=== PATIENT | female | born 1980 | race Caucasian/White ===

== ENCOUNTER 2023-12-27 21:06 | Outpatient (REF) | payer OTHER, SELFPAY ==
[2024-01-02 11:09] LABS: Age Gdln ACOG Testing Note (.); HPV Aptima Negative (Negative); IGP, Aptima HPV, rfx 16/18,45 Note (.)
== END 2023-12-27 21:07 | disposition home or self-care (01) ==
LOC: LAB 21:06
PROVIDERS: PCP Obstetrics & Gynecology; Visit Provider Obstetrics & Gynecology
DX: Z01.419 Encounter for gynecological examination (general) (routine) without abnormal findings (principal)
CPT/HCPCS: 87624; G0145

== ENCOUNTER 2024-01-12 13:42 | Outpatient (OUT) | payer OTHER, SELFPAY ==
--- NOTE | 2024-01-12 13:44 | MM_ITS ---
Patient Name: SHARON CARTER MR#: [id number] : 1980 Exam Date: 01/12/2024 Ordering Doctor: DR Jose Antonio Alaniz . RADIOLOGY REPORT PROCEDURE: MM TOMOSYNTHESIS SCREENING BI COMPARISON: None. INDICATIONS: Screening Calculator Name NCI Breast Cancer Risk Assessment Tool 5 Year Breast Cancer Risk 1.70% Lifetime Breast Cancer Risk 17.30% Personal Breast Cancer No Personal Ovarian Cancer No Treatments None Family Cancers None LOCATION: [facility] BREAST COMPOSITION: Extremely dense, which lowers the sensitivity of mammography. FINDINGS: DIAGNOSTIC CATEGORY 1--NEGATIVE. RIGHT BREAST: No significant suspicious finding. LEFT BREAST: No significant suspicious finding. RECOMMENDATIONS: ROUTINE MAMMOGRAM AND CLINICAL EVALUATION IN 12 MONTHS. PLEASE NOTE: A NORMAL MAMMOGRAM DOES NOT EXCLUDE THE POSSIBILITY OF BREAST CANCER. A CLINICALLY SUSPICIOUS PALPABLE LUMP SHOULD BE BIOPSIED. Dictated by: Kale Tejada M.D. on 01/12/2024 at 15:08 Approved by: Kale Tejada M.D. on 01/12/2024 at 15:09
--- OUTSIDE RECORDS SUMMARY | 2024-01-12 14:02 | XMS_ITS | CCD ---
Author Name Unknown Address [address] [place] [address] Organization [facility] Care Team Providers Care Triage Technician Name Role Phone Unavailable Primary Care Provider Rajinder AVILA, DR KIRSTIN Dumont Primary Care Unavailable RUBEN ., DR JOSEPH Admitting Unavailable RUBEN ., DR JOSEPH Consulting Unavailable RUBEN ., DR JOSEPH Attending Unavailable AUSTIN, DR KIRSTIN Dumont Primary Care Unavailable KARINA, LENIN Admitting Unavailable KARINA, LENIN Attending Unavailable ADI, DR JAYSON Orozco Consulting Unavailable KARINA, LENIN Consulting Unavailable AUSTIN, DR KIRSTIN Dumont Primary Care Unavailable RUBEN ., DR JOSEPH Admitting Unavailable RUBEN ., DR JOSEPH Consulting Unavailable RUBEN ., DR JOSEPH Attending Unavailable AUSTIN, DR KIRSTIN Dumont Primary Care Unavailable DES ., ANDREW DURHAM Admitting Unavailable DES ., ANDREW DURHAM Attending Unavailable RUBEN, JAKE Attending Unavailable Allergies Allergy Classification Reported Allergen(s) Allergy Type Date of Onset Reaction(s) Facility (1 source) Codeine Drug Allergy 11-06-[address] [facility] Repository Problems Active Problems Problem Classification Problem Date Documented Da te Episodic/Chronic Other endocrine disorders (4 sources) Endocrine disorder, unspecified; Translations: [ENDOCRINE DISORDER UNSPECIFIED] Onset: 03-31-2023 Episodic Other non-traumatic joint disorders (4 sources) Pain in right ankle and joints of right foot; Translations: [PAIN IN RIGHT ANKLE] Onset: 02-23-2023 Episodic Other non-traumatic joint disorders (1 source) Pain in left ankle and joints of left foot; Translations: [PAIN IN LEFT ANKLE] Onset: 03-02-2023 Episodic Past or Other Problems Problem Classification Problem Date Documented Da te Episodic/Chronic Other screening for suspected conditions (not mental disorders or infectious disease) (4 sources) Encounter for screening for malignant neoplasm of cervix; Translations: [ENC SCREENING MALIG NEOPLASM CERV] Onset: 12-19-2022 Episodic Results Test Name Value Interpretation Reference Range Loco brody DHEA-SULFATEon 04-01-2023 DHEA-Sulfate 108.0 ug/dL Normal 57.3-279.2 The [facility] Comment on above: Performed By: #### D HEJOSEF #### [facility] [address] [address] [address] Sissy Adam FSHon 04-01-2023 FSH 8.2 mIU/mL Normal [facility] Comment on above: Result Comment: Adul t Female: Follicular phase 3.5 - 12.5 Ovulation phase 4.7 - 21.5 Luteal phase 1.7 - 7.7 Postmenopausal 25.8 - 134.8 Performed By: #### L BCFSH #### [facility] [address] [place] [address] Dr. Sissy Adam LUTEINIZING HORMONE (LH)on 0 04-01-2023 LH 8.7 mIU/mL Normal [facility] Comment on above: Result Comment: Adul t Female: Follicular phase 2.4 - 12.6 Ovulation phase 14.0 - 95.6 Luteal phase 1.0 - 11.4 Postmenopausal 7.7 - 58.5 Performed By: #### L BCLH #### [facility] [address] [address] [address] Sissy Adam PROLACTINon 04-01-2023 Prolactin 45.8 ng/mL Critically high 4.8-23.3 The [facility] Comment on above: Performed By: #### P ROLAC #### [facility] [address] [address] [address] Sissy Adam TSHon 03-31-2023 TSH 3.339 uIU/mL Normal 0.358-3.740 The [facility] Comment on above: Performed By: #### T SH #### [facility] [address] [place] [address] Dr. Sissy Adam XR FOOT MARCO MIN 3 VIEWSon XR FOOT MARCO MIN 3 VIEWS EXAMINATION: XR ANKLE MARCO MIN 3 VIEWS, XR FOOT MARCO MIN 3 VIEWS HISTORY: Bilateral ankle joint pain ; lateral right ankle pain and swelling since injury 7 months ago COMPARISON: No relevant comparison available. FINDINGS: RIGHT FINDINGS: BONES: No significant arthropathy or acute abnormality. SOFT TISSUES: No visible soft tissue swelling. OTHER: Negative. LEFT FINDINGS: BONES: No significant arthropathy or acute abnormality. SOFT TISSUES: No visible soft tissue swelling. OTHER: Negative. IMPRESSION: RIGHT CONCLUSION: No acute bone abnormality, suspicious findings, or significant degenerative changes. LEFT CONCLUSION: No acute bone abnormality, suspicious findings, or significant degenerative changes. Electronically authenticated by: JAYSON JOSHI Date: 2023-02-23 12:04 Normal [facility] PAP ACOG PANEL 2: 30 to 65on 12-26-2022 . . Normal [facility] Comment on above: Result Comment: Perf ormed at: WB Performed By: #### [id number] #### [facility] [address] [place] [address] Dr. Sissy Adam Age Gdln ACOG Testing 30-65 Normal [facility] Comment on above: Performed By: #### [id number] #### [facility] [address] [address] [address] Sissy Adam DIAGNOSIS: Comment Normal [facility] Comment on above: Result Comment: NEGA TIVE FOR INTRAEPITHELIAL LESION OR MALIGNANCY. THIS SPECIMEN WAS RESCREENED PART OF OUR STEAMFITTER SUPERVISOR PROGRAM. Performed at: WB Performed By: #### [id number] #### [facility] [address] [place] [address] Dr. Sissy Adam HPV Aptima Negative Normal Negative [facility] Comment on above: Result Comment: This nucleic acid amplification test detects fourteen high-risk HPV types (16,18,31,33,35,39,45,51,52,56,58,59,66,68) without differentiation. Performed at: =G Performed By: #### [id number] #### [facility] [address] [address] [address] Sissy Adam HPV Genotype Reflex Comment Normal [facility] Comment on above: Result Comment: Crit eria not met, HPV Genotype not performed. Performed at: WB Performed By: #### [id number] #### [facility] [address] [place] [address] Dr. Sissy Adam Methodology: Comment Normal [facility] Comment on above: Result Comment: This liquid based ThinPrep(R) pap test was screened with the use of an image guided system. Performed at: WB Performed By: #### [id number] #### [facility] [address] [address] [address] Sissy Adam Note: Comment Normal [facility] Comment on above: Result Comment: The Pap smear is a screening test designed to aid in the detection of premalignant and malignant conditions of the uterine cervix. It is not a diagnostic procedure and should not be used as the sole means of detecting cervical cancer. Both false-positive and false-negative reports do occur. . Performed at: WB Performed By: #### [id number] #### [facility] [address] [place] [address] Dr. Sissy dAam Performed by: Comment Normal [facility] Comment on above: Result Comment: Tamara Flores, Creamery Worker (ASCP) Performed at: [facility] Performed By: #### [id number] #### [facility] [address] [address] [address] Sissy Adam QC reviewed by: Comment Normal [facility] Comment on above: Result Comment: Anna Harris, Supervisory Creamery Worker (ASCP) Performed at: WB Performed By: #### [id number] #### [facility] [address] [place] [address] Dr. Sissy Adam Specimen adequacy: Comment Normal [facility] Comment on above: Result Comment: Sati sfactory for evaluation. Endocervical and/or squamous metaplastic cells (endocervical component) are present. Performed at: WB Performed By: #### [id number] #### [facility] [address] [address] [address] Sissy Adam Encounters Encounter Date Encounter Type Care Provider Facility Start: 12-27-2023 End: 12-27-2023 ambulatory JAKE MIRANDA Not Available Start: 03-31-2023 End: 04-01-[address] KIRSTIN AVILA Facility: Start: 04-27-[address] KIRSTIN AVILA Facil ity:H1 Start: 02-26-2023 End: 02-27-2023 Emergency department patient visit [facility] Start: 02-23-2023 End: 02-24-[address] KIRSTIN AVILA Facility:H1 Start: 12-19-2022 End: 12-19-[address] KIRSTIN AVILA Facility:H1 Plan of Treatment Date Care Activity Detail Author Start: 06-06-2023 Influenza vaccination Flu vacc ine (Season Ended) [facility] [employer] Start: 1999 DTaP/Tdap/Td vaccine (1 - Tdap) DTaP/Tdap/Td vaccine (1 - Tdap) [employer] Start: 04-09-1981 COVID-19 Vaccine (#1) COVID-19 Vacci ne (#1) [employer] Payers Date Payer Category Payer Private Health Insurance [id number] 1980 Unknown [id number] 2.16.84 [id number] 1980 Unknown [id number] 2.16.84 [id number] 1980 Unknown [id number] 2.16.84 [id number] 1980 Unknown [id number] 2.16.84 [id number] 1980 Unknown [id number] 2.16.84 [id number] 1959 Self-pay [id number] Social History Date Type Detail Facility [facility] [employer] Phone: Start: 1980 Sex Assigned At Not on file B ON [employer] Phone: Summary Purpose Family History No Family History Records FoundNo Family History Records Found Advance Directives No Advanced Directives Records FoundNo Advanced Directives Records Found Additional Source Comments INFORMATION SOURCE (unrecogn ized section and content) DATE CREATED AUTHOR 04/14/2023 [facility] DATE CREATED AUTHOR AUTHOR'S BLANCA HUNTER 01/04/2024 [facility] EPIC FOR RECORDS PERTAINING TO PATIENTS WHO ARE OR HAVE BEEN ENROLLED IN A CHEMICAL DEPENDENCY/SUBSTANCEABUSE PROGRAM, SOME INFORMATION MAY BE OMITTED. This clinical summary was aggregated from multiple sources. Caution should be exercised in using it in the provision of clinical care. This summary normalizes information from multiple sources, and as a consequence, information in this document may materially change the coding, format and clinical context of patient data. In addition, data may be omitted in some cases. CLINICAL DECISIONS SHOULD BE BASED ON THE PRIMARY CLINICAL RECORDS. [facility] [employer] provides no warranty or guarantee of the accuracy or completeness of information in this document.
== END 2024-01-12 13:43 | disposition home or self-care (01) ==
LOC: MAMMO 13:42
PROVIDERS: PCP Obstetrics & Gynecology; Visit Provider Obstetrics & Gynecology
DX: Z12.31 Encounter for screening mammogram for malignant neoplasm of breast (principal)
CPT/HCPCS: 77063; 77067

== ENCOUNTER 2025-01-01 14:13 | Outpatient (REF) | payer OTHER, SELFPAY ==
--- OUTSIDE RECORDS SUMMARY | 2025-01-01 14:30 | XMS_ITS | CCD ---
Author Organization [facility] Care Team Providers Care Strip Roller Name Role Phone Unavailable Primary Care Provider [...] Unavailable DES ., ANDREW DURHAM Attending Unavailable JAKE MIRANDA Attending Unavailable Allergies Allergy Classification Reported Allergen(s) Allergy Type Date of Onset Reaction(s) Facility (1 source) Codeine Drug Allergy 11-06-2001 The [facility] Repository Problems Active Problems Problem Classification Problem [...] 04-01-2023 DHEA-Sulfate 108.0 ug/dL Normal 57.3-279.2 The [facility] Comment on above: Performed By: #### D HEDEDRICKUL #### [facility] [address] [place] [address] Dr. Sissy Adam FSHon 04-01-2023 FSH 8.2 mIU/mL Normal [facility] Comment on above: Result Comment: Adul t Female: Follicular phase 3.5 - 12.5 Ovulation phase 4.7 - 21.5 Luteal phase 1.7 - 7.7 Postmenopausal 25.8 - 134.8 Performed By: #### L BCFSH #### [facility] [address] [place] [address] Dr. Sissy Adam LUTEINIZING HORMONE (LH)on 04-01-2023 LH 8.7 mIU/mL Normal [facility] Comment on above: Result Comment: Adul t Female: Follicular phase 2.4 - 12.6 Ovulation phase 14.0 - 95.6 Luteal phase 1.0 - 11.4 Postmenopausal 7.7 - 58.5 Performed By: #### L BCLH #### [facility] [address] [address] [address] Sissy Adam PROLACTINon 04-01-2023 Prolactin 45.8 ng/mL Critically high 4.8-23.3 The [facility] Comment on above: Performed By: #### P ROLAC #### [facility] [address] [place] [address] Dr. Sissy Adam TSHon 03-31-2023 TSH 3.339 uIU/mL Normal 0.358-3.740 [facility] Comment on above: Performed By: #### T SH #### [facility] [address] [place] [address] Dr. Sissy Adam XR FOOT MARCO MIN [...] by: JAYSON JOSHI Date: 2023-02-23 12:04 Normal [facility] PAP ACOG PANEL 2: 30 to 65on 12-26-2022 . . Normal [facility] Comment on above: Result Comment: Perf ormed at: WB Performed By: #### [id number] #### [facility] [address] [address] [address] Sissy Adam Age Gdln ACOG Testing 30-65 Normal [facility] Comment on above: Performed By: #### [id number] #### [facility] [address] [address] [address] Sissy Adam DIAGNOSIS: Comment Normal [facility] Comment on above: Result Comment: NEGA TIVE FOR INTRAEPITHELIAL LESION OR MALIGNANCY. THIS SPECIMEN WAS RESCREENED PART OF OUR SENIOR SOFTWARE ANALYST PROGRAM. Performed at: WB Performed By: #### [id number] #### [facility] [address] [address] [address] Sissy Adam HPV Aptima Negative Normal Negative [facility] Comment on above: Result Comment: This nucleic acid amplification test detects fourteen high-risk HPV types (16,18,31,33,35,39,45,51,52,56,58,59,66,68) without differentiation. Performed at: =G Performed By: #### [id number] #### [facility] [address] [address] [address] Sissy Adam HPV Genotype Reflex Comment Normal [facility] Comment on above: Result Comment: Crit eria not met, HPV Genotype not performed. Performed at: WB Performed By: #### [id number] #### [facility] [address] [address] [address] Sissy Adam Methodology: Comment Normal [facility] Comment on above: Result Comment: This liquid based ThinPrep(R) pap test was screened with the use of an image guided system. Performed at: WB Performed By: #### [id number] #### [facility] [address] [address] [address] Sissy Adam Note: Comment Normal [facility] Comment on above: Result Comment: The Pap smear is a screening test designed to aid in the detection of premalignant and malignant conditions of the uterine cervix. It is not a diagnostic procedure and should not be used as the sole means of detecting cervical cancer. Both false-positive and false-negative reports do occur. . Performed at: WB Performed By: #### [id number] #### [facility] [address] [address] [address] Sissy Adam Performed by: Comment Normal [facility] Comment on above: Result Comment: Tamara Flores, Secretary Receptionist (ASCP) Performed at: [facility] Performed By: #### [id number] #### [facility] [address] [address] [address] Sissy Adam QC reviewed by: Comment Normal [facility] Comment on above: Result Comment: Anna Harris, Supervisory Secretary Receptionist (ASCP) Performed at: WB Performed By: #### [id number] #### [facility] [address] [address] [address] Sissy Adam Specimen adequacy: Comment Normal [facility] Comment on above: Result Comment: Sati sfactory for evaluation. Endocervical and/or squamous metaplastic cells (endocervical component) are present. Performed at: WB Performed By: #### [id number] #### [facility] [address] [address] [address] Sissy Adam Encounters Encounter Date Encounter Type Care Provider Facility Start: 12-27-2023 End: 12-27-2023 ambulatory JAKE MIRANDA Not Available Start: 03-31-2023 End: 04-01-[address] KIRSTIN AVILA Facility:H1 Start: 03-02-[address] KIRSTIN AVILA Facil ity:H1 Start: 02-26-2023 End: 02-27-2023 Emergency department patient visit [facility] Start: 02-23-2023 End: 02-24-[address] KIRSTIN AVILA Facility:H1 Start: 12-19-2022 End: 12-19-[address] KIRSTIN AVILA Facility:H1 Plan of Treatment Date Care Activity Detail Author Start: 06-06-2023 Influenza vaccination Flu vacc ine (Season Ended) [facility] [employer] Start: 1999 DTaP/Tdap/Td vaccine (1 - Tdap) DTaP/Tdap/Td vaccine (1 - Tdap) [facility] [employer] Start: 04-09-1981 COVID-19 Vaccine (#1) COVID-19 Vacci ne (#1) [facility] [employer] Payers Date Payer Category Payer Private Health Insurance [id number] 1980 Unknown [id number] 2.16.84 [id number] 1980 Unknown [id number] 2.16.84 [id number] 1980 Unknown [id number] 2.16.84 [id number] 1980 Unknown [id number] 2.16.84 [id number] 1980 Unknown [id number] 2.16.84 [id number] 1959 Self-pay [id number] Social History Date Type Detail Facility Tobacco smoking stat [facility] Tobacco smoking consumption unknown [facility] [employer] Phone: Start: 1980 Sex Assigned At Not on file B ON [employer] Phone: Summary Purpose Family History No Family History Records FoundNo Family History Records Found Advance Directives No Advanced Directives Records FoundNo Advanced Directives Records Found Additional Source Comments INFORMATION SOURCE (unrecogn ized section and content) DATE CREATED AUTHOR 04/14/2023 [facility] DATE CREATED AUTHOR AUTHOR'S ORGANIZ ATION 01/04/2024 [facility] FOR RECORDS PERTAINING TO PATIENTS WHO ARE [...] BE BASED ON THE PRIMARY CLINICAL RECORDS. [facility] [employer] [facility]. provides no warranty or guarantee of the accuracy or completeness of information in this document.
[2025-01-04 10:08] LABS: Age Gdln ACOG Testing Note (.); HPV Aptima Negative (Negative); IGP, Aptima HPV, rfx 16/18,45 Note (.)
== END 2025-01-01 14:14 | disposition home or self-care (01) ==
LOC: LAB 14:13
PROVIDERS: PCP Obstetrics & Gynecology; Visit Provider Obstetrics & Gynecology
DX: Z01.419 Encounter for gynecological examination (general) (routine) without abnormal findings (principal)
CPT/HCPCS: 87624; 88175

== ENCOUNTER 2025-01-13 09:17 | Outpatient (OUT) | payer OTHER, SELFPAY ==
--- NOTE | 2025-01-13 09:20 | MM_ITS ---
Patient Name: SHARON CARTER MR#: [id number] : 1980 Exam Date: 01/13/2025 Ordering Doctor: DR Jose Antonio Alaniz . RADIOLOGY REPORT PROCEDURE: MM TOMOSYNTHESIS SCREENING BI COMPARISON: MM TOMOSYNTHESIS SCREENING BI, 01/12/2024. INDICATIONS: Screening Calculator Name NCI Breast Cancer Risk Assessment Tool 5 Year Breast Cancer Risk 1.80% Lifetime Breast Cancer Risk 17.10% Personal Breast Cancer No Personal Ovarian Cancer No Treatments None Family Cancers None LOCATION: [facility] BREAST COMPOSITION: The breasts are extremely dense, which lowers the sensitivity of mammography. FINDINGS: DIAGNOSTIC CATEGORY 1--NEGATIVE. RIGHT BREAST: No significant suspicious finding. LEFT BREAST: No significant suspicious finding. RECOMMENDATIONS: ROUTINE MAMMOGRAM AND CLINICAL EVALUATION IN 12 MONTHS. PLEASE NOTE: A NORMAL MAMMOGRAM DOES NOT EXCLUDE THE POSSIBILITY OF BREAST CANCER. A CLINICALLY SUSPICIOUS PALPABLE LUMP SHOULD BE BIOPSIED. Dictated by: Hawk Mo DO on 01/13/2025 at 15:38 Approved by: Hawk Mo DO on 01/13/2025 at 15:39
== END 2025-01-13 09:18 | disposition home or self-care (01) ==
LOC: MAMMO 09:17
PROVIDERS: PCP Obstetrics & Gynecology; Visit Provider Obstetrics & Gynecology
DX: Z12.31 Encounter for screening mammogram for malignant neoplasm of breast (principal)
CPT/HCPCS: 77063; 77067

== ENCOUNTER 2025-07-05 11:52 | Outpatient (OUT) | payer OTHER, SELFPAY ==
--- OUTSIDE RECORDS SUMMARY | 2025-07-05 12:00 | XMS_ITS | Encounter Summary ---
Author Organization [facility] Address [address] [place] [address] Care Team Providers Care Binman Name Role Phone Lucia Henley MD Primary Care Provider [phone] Encounter Details Date Type Department Care Team (Late Contact Info) Description 07/03/2025 Telephone [facility] [place] [facility] [address] [place] [address] Jose Antonio Alaniz DO [address] [place], [facility] Social History Tobacco Use Types Packs/Day Years Used Date Smoking Tobacco: Never Alcohol Use Standard Drinks/Week Comments Never 0 (1 standard drink = 0.6 oz pur e alcohol) Comments No Sex and Gender Information Value Date Recorded Sex Assigned at Not on file Legal Sex Female 6:44 PM EDT Gender Identity Not on file Sexual Orientation Not on file documented as of this encounter Miscellaneous Notes * Addendum Note - [place] Ann Natarajan LPN - 07/03/2025 1:09 PM EDTAddended by: [place] ANN NATARAJAN on: 07/03/2025 01:09 PM Modules accepted: Orders * Telephone Encounter - [place] Ann Natarajan LPN - 07/03/2025 12:46 PM EDT Hi, this is Morena Mock. My date of is 10-09 I see Hayley. Normally my annuals are usually around December. But I was curious if he could put in an order for hormone labs for me. I havebeen having some symptoms that, I think mirror Premenopause. I have not had a period in, like, 45 days. I know I am not . And so I am curious about that along with other some other symptoms too. And I just do not know where my hormone look levels are. So I figured if I could get them tested, he might be able to tell me where I am at on the menopause scale. So if you have any questions, just give me a Buzz, please. [phone], thanks. Patient was called and made aware labs would be ordered and these were sent to [facility] and she states that she has not had these done and she was advised looks like she hd labs in 2022 and these were normal except the prolactin level which stimulates milk production. PVU documented in this encounter Plan of Treatment Upcoming Encounters Date Type Department Care Team (Late st Contact Info) Description 01/12/2026 9:00 AM EDT Office Visit [facility] [place] [facility] [address] [place] [address] Jose Antonio Alaniz DO [address] [address] Scheduled Orders Name Type Priority Associated Diagnoses Orde r Schedule TSH Lab Routine Amenorrhea Expected: 07/03/2025 (Approximate), Expires: 07/03/2026 Follicle stimulating hormone Lab Routine Amenorrhea Expected: 07/03/2025 (Approximate), Expires: 07/03/2026 Prolactin Lab Routine Amenorrhea Expected: 07/03/2025 (Approximate), Expires: 07/03/2026 LH Lab Routine Amenorrhea Expected: 07/03/2025 (Approximate), Expires: 07/03/2026 DHEA-sulfate Lab Routine Amenorrhea Expected: 07/03/2025 (Approximate), Expires: 07/03/2026 Estradiol Lab Routine Hormone disorder Expected: 07/03/2025 (Approximate), Expires: 07/03/2026 Estrone Lab Routine Hormone disorder Expected: 07/03/2025 (Approximate), Expires: 07/03/2026 Cortisol, free Lab Routine Hormone disorder Expected: 07/03/2025 (Approximate), Expires: 07/03/2026 Sex hormone binding globulin Lab Routine Hormone disorder Expected: 07/03/2025 (Approximate), Expires: 07/03/2026 Insulin, total Lab Routine Hormone disorder Expected: 07/03/2025 (Approximate), Expires: 07/03/2026 Serotonin serum Lab Routine Hormone disorder Expected: 07/03/2025 (Approximate), Expires: 07/03/2026 T4, free Lab Routine Hormone disorder Expected: 07/03/2025 (Approximate), Expires: 07/03/2026 T3, reverse Lab Routine Hormone disorder Expected: 07/03/2025 (Approximate), Expires: 07/03/2026 Progesterone Lab Routine Hormone disorder Expected: 07/03/2025 (Approximate), Expires: 07/03/2026 Vitamin D 1,25 dihydroxy Lab Routine Hormone disorder Expected: 07/03/2025 (Approximate), Expires: 07/03/2026 Ferritin Lab Routine Hormone disorder Expected: 07/03/2025 (Approximate), Expires: 07/03/2026 T3, free Lab Routine Hormone disorder Expected: 07/03/2025 (Approximate), Expires: 07/03/2026 Thyroglobulin Lab Routine Hormone disorder Expected: 07/03/2025 (Approximate), Expires: 07/03/2026 Thyroglobulin Antibody Lab Routine Hormone disorder Expected: 07/03/2025 (Approximate), Expires: 07/03/2026 Thyroid peroxidase antibody Lab Routine Hormone disorder Expected: 07/03/2025 (Approximate), Expires: 07/03/2026 T4 Lab Routine Hormone disorder Expected: 07/03/2025 (Approximate), Expires: 07/03/2026 TESTOSTERONE, FREE Lab Routine Hormone disorder Expected: 07/03/2025 (Approximate), Expires: 07/03/2026 Testosterone, free, total Lab Routine Hormone disorder Expected: 07/03/2025 (Approximate), Expires: 07/03/2026 Hemoglobin A1c Lab Routine Hormone disorder Expected: 07/03/2025 (Approximate), Expires: 07/03/2026 Glucose, random Lab Routine Hormone disorder Expected: 07/03/2025 (Approximate), Expires: 07/03/2026 C-peptide Lab Routine Hormone disorder Expected: 07/03/2025 (Approximate), Expires: 07/03/2026 documented as of this encounter Visit Diagnoses Diagnosis Amenorrhea Absence of menstruation Hormone disorder Unspecified endocrine disorder documented in this encounter Care Teams Binman Relationship Specialty Start Date End Date Lucia Henley MD PCP - General Family Medicine 12/27/23 documented as of this encounter
--- OUTSIDE RECORDS SUMMARY | 2025-07-05 12:00 | XMS_ITS | Patient Health Record ---
Author Organization [facility] in [place] Address [address] [place] [address] Care Team Providers Care Laboratory Specialist Name Role Phone Lucia Henley Primary Care Provider Unavailabl e Allergies Allergen (clinical drug ingredient) Drug/Non Drug Allergy documented on EMR Reaction Allergy Type Onset Date Status codeine Codeine Unknown Drug Allergy Active Reason For Referral No Information Medications Medication SIG (Take, Route, Fr equency, Duration) Notes Start Date End Date Status Citalopram Hydrobromide Active Active Social History Tobacco Use: Social History Observation Description Date Details (start date - stop date) Never Smoker NA - NA Tobacco Use/Smoking Question Answer Notes Patient is a nonsmoker Problems Problem Type SNOMED Code ICD Code Onset Dates Problem Status W/U Status Risk Notes Problem Arthralgia of the ankle and/or foot (722482840) Pain in right ankle and joints of right foot (M25.571) Active confirmed Plan Of Treatment No Information Insurance Providers Payer Name Payer Address Payer Phone Subscriber Number Group Number Insured Name Patient Relationship to Insured Coverage Start Date Coverage End Date [facility] [address] [place], [place] [id number] Morena Mock Self - patient is the insured Medical (General) History Surgical History Surgery Date(Month/Year) lasik hernia repair 06/1989
--- OUTSIDE RECORDS SUMMARY | 2025-07-05 12:00 | XMS_ITS | Encounter Summary ---
Author Organization [facility] Address [facility] [id number] [address] [place] [address] Care Team Providers Care Ear Flap Binder Name Role Phone Lucia Henley MD Primary Care Provider [phone] Reason for Referral * Diagnostic Imaging (Routine) - Closed Specialty Diagnoses / Procedures Referred By Jenny harvey Referred To Contact Maternal and Medicine Diagnoses Rh negative state in antepartum period H/O delivery, currently H/O miscarriage, currently Multigravida of advanced maternal age in second trimester Procedures US MF with or without consult Phylicia Irvin MD Maternal- Medicine at [address] [address] Phone: tel: fax: Referral ID Status Reason Start Date Expiration Date Visits Re quested Visits Authorized [id number] Closed 04/06/2021 04/06/2022 1 1 Encounter Details Date Type Department Care Team (Late st Contact Info) Description 04/06/2021 Orders Only Maternal- Medicine at [address] [address] Phylicia Irvin MD Rh negative state in antepartum period (Primary Dx); H/O delivery, currently ; H/O miscarriage, currently ; Multigravida of advanced maternal age in second trimester Social History Tobacco Use Types Packs/Day Years Used Date Smoking Tobacco: Never Smokeless Tobacco: Never Alcohol Use Standard Drinks/Week Comments Not Currently 0 (1 standard drink = 0.6 oz pur e alcohol) Childcare Answer Date Recorded Childcare Unknown 04/11/2019 Employment Answer Date Recorded Employment Unknown 04/11/2019 Purpose - Life Answer Date Recorded Purpose and direction in life Unknown Comments Yes Sex and Gender Information Value Date Recorded Sex Assigned at Not on file Legal Sex Female 12:43 PM EDT Gender Identity Not on file Sexual Orientation Not on file COVID-19 Exposure Response Date Recorded In the last month, have you been in contact with someone who was confirmed or suspected to have Coronavirus / COVID-19? No / Unsure 04/06/2021 1:06 PM EDT documented as of this encounter Plan of Treatment Not on file documented as of this encounter Results * US MFM OB TRANSVAGINAL (05/04/2021 2:11 PM EDT) Anatomical Region Laterality Modality Pelvis Ultrasound 05/04/2021 2:07 PM EDT Impressions 05/04/2021 2:18 PM EDT IMPRESSION: 1. Single intrauterine . 2. Transvaginal Cervical Length = 3 cm. Narrative 05/04/2021 2:18 PM EDT OBSTETRICS REPORT (Signed Final 05/04/2021 14:18) PATIENT INFO: ID #: [id number] : [birth year] (40 yrs)(F) Name: MORENA CARTER Visit Date: 05/04/2021 14:07 PERFORMED BY: Performed By: Tram Riley RDMS Attending: Janes Fields MD Referred By: Jose Antonio Alaniz DO Ref. Address: [address] [place] [address] 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 By: LMP (11/26/20) AJAY: 09/02/21 CERVIX UTERUS ADNEXA: Cervix Length: 3 cm. Appears closed, without funnelling Uterus Gravid uterus Cul De Sac No fluid seen COMMENTS: 1. A trans vaginal ultrasound was performed to optimize the visualization of the lower uterine segment and the cervix. RECOMMENDATIONS: 1. Subsequent follow up or other follow up as clinically determined by primary OB provider unless otherwise specified by MFM. 2. Results forwarded to ordering provider so they can follow up with the patient as necessary. Janes Fields MD Electronically Signed Final Report 05/04/2021 14:18 Procedure Note Janes Fields MD - 05/04/2021 OBSTETRICS REPORT (Signed Final 05/04/2021 14:18) PATIENT INFO: ID #: [id number] : [birth year] (40 yrs)(F) Name: MORENA CARTER Visit Date: 05/04/2021 14:07 PERFORMED BY: Performed By: Tram Riley RDMS Attending: Janes Fields MD Referred By: Jose Antonio Noble. Address: [address] [place] [address] 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 By: LMP (11/26/20) AJAY: 09/02/21 CERVIX UTERUS ADNEXA: Cervix Length: 3 cm. Appears closed, without funnelling Uterus Gravid uterus Cul De Sac No fluid seen COMMENTS: 1. A trans vaginal ultrasound was performed to optimize the visualization of the lower uterine segment and the cervix. RECOMMENDATIONS: 1. Subsequent follow up or other follow up as clinically determined by primary OB provider unless otherwise specified by MFM. 2. Results forwarded to ordering provider so they can follow up with the patient as necessary. Janes Fields MD Electronically Signed Final Report 05/04/2021 14:18 IMPRESSION: IMPRESSION: 1. Single intrauterine . 2. Transvaginal Cervical Length = 3 cm. Phylicia Irvin MD [place] US ORDERABLES Final Resu lt documented in this encounter Visit Diagnoses Diagnosis Rh negative state in antepartum period- Primary H/O delivery, currently H/O miscarriage, currently Multigravida of advanced maternal age in second trimester Rh negative state in antepartum period H/O delivery, currently H/O miscarriage, currently Multigravida of advanced maternal age in second trimester Encounter for screening for cervical length documented in this encounter Care Teams Ear Flap Binder Relationship Specialty Start Date End Date Lucia Henley MD [address] [place] [address] PCP - General 01/21/19 documented as of this encounter
--- OUTSIDE RECORDS SUMMARY | 2025-07-05 12:00 | XMS_ITS | Encounter Summary ---
Author Organization [facility] Address [address] [place] [address] Care Team Providers Care Data Acquisition Technician Name Role Phone Lucia Henley MD Primary Care Provider [phone] Encounter Details Date Type Department Care Team ([facility] Contact Info) Description 01/12/2024 Clinisync Result Encounter [facility] External Department Unsolicited Jose Antonio Alaniz, DO [address] [address] Social History Tobacco Use Types Packs/Day Years [...] on file documented as of this encounter Plan of Treatment Upcoming Encounters Date Type Department Care Team ([facility] Contact Info) Description 01/12/2026 9:00 AM EDT Office Visit [facility] [address] [place] [address] JoseA ntonio Alaniz DO [address] [place] [address] documented as of this encounter Procedures Procedure Name Priority Date/Time Associated Diagnosis Comments MM TOMOSYNTHESIS SCREENING BI 01/12/2024 3:09 PM EST documented in this encounter Results * MM TOMOSYNTHESIS SCREENING BI (01/12/2024 3:09 PM EST) Anatomical Region Laterality Modality Other 01/12/2024 3:09 PM EST Narrative 01/12/2024 3:10 [place] [address] Mammography Report Signed Patient: MORENA CARTER MR#: [id number] : 1980 Acct:[id number] Age/Sex: 43 / F ADM Date: 01/12/24 Loc: MAMMO Attending Dr: Jose Antonio Alaniz D.O. Ordering Physician: Jose Antonio Alaniz D.O. Results: Date of Service: 01/12/24 Follow Up: Procedure(s): MM tomosynthesis screening BI Accession Number(s): [id number] cc: Jose Antonio Alaniz D.O. Patient Name: MORENA CARTER MR#: [id number] : 1980 Exam Date: 01/12/2024 Ordering Doctor: DR Jose Antonio Alaniz . RADIOLOGY REPORT PROCEDURE: MM TOMOSYNTHESIS SCREENING BI COMPARISON: None. INDICATIONS: Screening Calculator Name NCI Breast Cancer Risk Assessment Tool 5 Year Breast Cancer Risk 1.70% Lifetime Breast Cancer Risk 17.30% Personal Breast Cancer No Personal Ovarian Cancer No Treatments None Family Cancers None LOCATION: [facility] BREAST COMPOSITION: Extremely dense, which lowers the sensitivity of mammography. FINDINGS: DIAGNOSTIC CATEGORY 1--NEGATIVE. RIGHT BREAST: No significant suspicious finding. LEFT BREAST: No significant suspicious finding. RECOMMENDATIONS: ROUTINE MAMMOGRAM AND CLINICAL EVALUATION IN 12 MONTHS. PLEASE NOTE: A NORMAL MAMMOGRAM DOES NOT EXCLUDE THE POSSIBILITY OF BREAST CANCER. A CLINICALLY SUSPICIOUS PALPABLE LUMP SHOULD BE BIOPSIED. Dictated by: Kale Tejada M.D. on 01/12/2024 at 15:08 Approved by: Kale Tejada M.D. on 01/12/2024 at 15:09 Dictated By: Kale Tejada M.D. Signed By: 01/12/24 1510 DD/ 1509 TD/TT: Jewelry Estimator: Procedure Note Radiology, Radiologist, - 01/12/2024 [facility] [place] [id number] Mammography Report Signed Patient: MOERNA CARTER MMR#: [id number] : 1980Acct:[id number] Age/Sex: 43 / FADM Date: 01/12/24 Loc: MAMMO Attending Dr: Jose Antonio Alaniz D.O. Ordering Physician: Jose Antonio Alaniz D.O.Results: Date of Service: 01/12/24Follow Up: Procedure(s): MM tomosynthesis screening BI Accession Number(s): [id number] cc: Jose Antonio Alaniz D.O. Patient Name: MORENA CARTER MR#: [id number] : 1980 Exam Date: 01/12/2024 Ordering Doctor: DR Jose Antonio Alaniz . RADIOLOGY REPORT PROCEDURE: MM TOMOSYNTHESIS SCREENING BI COMPARISON: None. INDICATIONS: Screening Calculator Name NCI Breast Cancer Risk Assessment Tool 5 Year Breast Cancer Risk 1.70% Lifetime Breast Cancer Risk 17.30% Personal Breast Cancer No Personal Ovarian Cancer No Treatments None Family Cancers None LOCATION: [facility] BREAST COMPOSITION: Extremely dense, which lowers the sensitivity of mammography. FINDINGS: DIAGNOSTIC CATEGORY 1--NEGATIVE. RIGHT BREAST: No significant suspicious finding. LEFT BREAST: No significant suspicious finding. RECOMMENDATIONS: ROUTINE MAMMOGRAM AND CLINICAL EVALUATION IN 12 MONTHS. PLEASE NOTE: A NORMAL MAMMOGRAM DOES NOT EXCLUDE THE POSSIBILITY OFBREAST CANCER. A CLINICALLY SUSPICIOUS PALPABLE LUMP SHOULD BE BIOPSIED. Dictated by: Kale Tejada M.D. on 01/12/2024 at 15:08 Approved by: Kale Tejada M.D. on 01/12/2024 at 15:09 Dictated By: Kale Tejada M.D. Signed By:01/12/24 1510 DD/ 1509 TD/TT: Jewelry Estimator: Jose Antonio Alaniz DO [facility] Final Result documented in this encounter Visit Diagnoses Not on filedocumented in this encounter Care Teams Data Acquisition Technician Relationship Specialty Start Date End Date Lucia Henley MD PCP - General Family Medicine 12/27/23 documented as of this encounter
--- OUTSIDE RECORDS SUMMARY | 2025-07-05 12:00 | XMS_ITS | Encounter Summary ---
Author Organization [facility] [employer] [facility] tem Address [id number] [address] [place] [address] Care Team Providers Care Profile Mill Operator Tape Control Name Role Phone Lucia Hen[place] MD Primary Care Provider [phone] Reason for Referral * Diagnostic Imaging (Routine) - Closed Specialty Diagnoses / Procedures Referred By Jenny harvey Referred To Contact Maternal and Medicine Diagnoses Rh negative state in antepartum period H/O delivery, currently H/O miscarriage, currently Multigravida of advanced maternal age in second trimester Grand multiparity Procedures US MFM with or without consult Scott Barajas MD Phone: tel: fax: Maternal- Medicine at [facility] [address] [place] [address] Phone: tel: fax: Referral ID Status Reason Start Date Expiration Date Visits Re quested Visits Authorized [id number] Closed 04/01/2021 04/01/2022 1 1 Encounter Details Date Type Department Care Team (Late st Contact Info) Description 04/01/2021 Orders Only Maternal- Medicine at [facility] [address] [place] [address] Scott Barajas MD [address] [facility], [address] [address] Rh negative state in antepartum period (Primary Dx); H/O delivery, currently ; H/O miscarriage, currently ; Multigravida of advanced maternal age in second trimester; Grand multiparity Social History Tobacco Use Types Packs/Day Years [...] have Coronavirus / COVID-19? No / Unsure 03/23/2021 3:25 PM EDT documented as of this encounter Plan of Treatment Not on file documented as of this encounter Results * US MFM OB TRANSVAGINAL (04/06/2021 2:08 PM EDT) Anatomical Region Laterality Modality Pelvis Ultrasound 04/06/2021 1:33 PM EDT Impressions 04/06/2021 2:19 PM EDT IMPRESSION: 1. Single intrauterine . 2. Transvaginal Cervical Length = 3.9. Narrative 04/06/2021 2:19 PM EDT OBSTETRICS REPORT (Signed Final 04/06/2021 14:19) PATIENT INFO: ID #: [id number] : [birth year] (40 yrs)(F) Name: MORENA CARTER Visit Date: 04/06/2021 13:33 PERFORMED BY: Performed By: Shelbie Alcala RDMS Attending: Phylicia Irvin MD Referred By: Jose Antonio Noble. Address: [address] [place] [address] [place] [address] Location: [facility] [place] SERVICE(S) PROVIDED: OB Transvaginal 49295 INDICATIONS: Supervision of elderly (over 35 years), O09..519 antepartum History of previous with O09.899 delivery, VITAL SIGNS: Weight (lb): 122 Height: 5'1 BMI: 23.05 EVALUATION: Num Of Fetuses: 1 Heart Rate(bpm): 137 Cardiac Activity: Present & appears normal Presentation: Cephalic BIOMETRY: OB HISTORY: : 6 Term: 1 Jett: 2 SAB: 2 Livin GESTATIONAL AGE: LMP: 18w 5d Date: 11/26/20 AJAY: 09/02/21 Best: 18w 5d Det. By: LMP (11/26/20) AJAY: 09/02/21 CERVIX UTERUS ADNEXA: Cervix Length: 3.9 cm. Appears closed, without funnelling Uterus Gravid uterus COMMENTS: A trans vaginal ultrasound was performed to optimize the visualization of the lower uterine segment and the cervix. RECOMMENDATIONS: 1. Patient is scheduled in 2 weeks for cervical length and anatomic survey. 2. Patient is scheduled in 4 weeks for cervical length protocol. 3. Subsequent follow up or other follow up as clinically determined by primary OB provider unless otherwise specified by MFM. 4. Results forwarded to ordering provider so they can follow up with the patient as necessary. Phylicia Irvin MD Electronically Signed Final Report 04/06/2021 14:19 Procedure Phylicia Broussard MD - 04/06/2021 OBSTETRICS REPORT (Signed Final 04/06/2021 14:19) PATIENT INFO: ID #: [id number] : [birth year] (40 yrs)(F) Name: MORENA CARTER Visit Date: 04/06/2021 13:33 PERFORMED BY: Performed By: Shelbie Alcala RDMS Attending: Phylicia Irvin MD Referred By: Jsoe Antonio Noble. Address: [address] [place] [address] [place] [address] Location: [facility] [place] SERVICE(S) PROVIDED: OB Transvaginal 46173 INDICATIONS: Supervision of elderly (over 35 years), O09..519 antepartum History of previous with O09.899 delivery, VITAL SIGNS: Weight (lb): 122 Height: 5'1 BMI: 23.05 EVALUATION: Num Of Fetuses: 1 Heart Rate(bpm): 137 Cardiac Activity: Present & appears normal Presentation: Cephalic BIOMETRY: OB HISTORY: : 6 Term: 1 Jett: 2 SAB: 2 Livin GESTATIONAL AGE: LMP: 18w 5d Date: 11/26/20 AJAY: 09/02/21 Best: 18w 5d Det. By: LMP (11/26/20) AJAY: 09/02/21 CERVIX UTERUS ADNEXA: Cervix Length: 3.9 cm. Appears closed, without funnelling Uterus Gravid uterus COMMENTS: A trans vaginal ultrasound was performed to optimize the visualization of the lower uterine segment and the cervix. RECOMMENDATIONS: 1. Patient is scheduled in 2 weeks for cervical length and anatomic survey. 2. Patient is scheduled in 4 weeks for cervical length protocol. 3. Subsequent follow up or other follow up as clinically determined by primary OB provider unless otherwise specified by MFM. 4. Results forwarded to ordering provider so they can follow up with the patient as necessary. Phylicia Irvin MD Electronically Signed Final Report 04/06/2021 14:19 IMPRESSION: IMPRESSION: 1. Single intrauterine . 2. Transvaginal Cervical Length = 3.9. us Scott Barajas MD [facility] US ORDERABLES Final Result documented in this encounter Visit Diagnoses Diagnosis Rh negative state in antepartum period- Primary H/O delivery, currently H/O miscarriage, currently Multigravida of advanced maternal age in second trimester Grand multiparity Rh negative state in antepartum period H/O delivery, currently H/O miscarriage, currently Multigravida of advanced maternal age in second trimester Grand multiparity documented in this encounter Care Teams Profile Mill Operator Tape Control Relationship Specialty Start Date End Date Lucia Hen[place] MD [address] [place] [address] PCP - General 01/21/19 documented as of this encounter
--- OUTSIDE RECORDS SUMMARY | 2025-07-05 12:00 | XMS_ITS | Clinical Summary ---
Author Organization [facility] Address [address] [facility] [place] [address] Care Team Providers Care Hospital Coordinator Name Role Phone Lucia Henley MD Primary Care Provider [phone] Allergies Active Allergy Reactions Criticality Noted Date Comments Codeine Itching,Unknown 01/14/2019 Medications citalopram (CeleXA) 10 MG tabletIndicatio ns:Hormone imbalance TAKE 1 TABLET BY MOUTH EVERY DAY IN THE MORNING 90 tablet 3 09/19/2024 Active citalopram (CeleXA) 20 MG tabletIndicatio ns:Hormone imbalance TAKE 1 TABLET BY MOUTH ONCE DAILY AT THE SAME TIME EACH DAY 90 tablet 3 03/04/2025 Active Encounters Date Type Department Care Team Description 07/03/2025 Telephone [facility] [address] [place] [address] [place] [address] Jose Antonio Alaniz DO from Last 3 Months Family History Medical History Relation Name Comments Hyperlipidemia Father Hypertension Father Mental illness Father Stroke Father Cancer Maternal Grandmother Diabetes Mother Heart disease Mother Hyperlipidemia Mother Hypertension Mother Mental illness Mother Cancer Paternal Grandmother Hypertension Sibling Mental illness Sibling Relation Name Status Comments Daughter Alive Father Maternal Grandmother Mother Paternal Grandmother Sibling 1 brother, 1 si ster Son 1 Alive Son 2 Alive Social History Tobacco Use Types Packs/Day Years Used Date Smoking Tobacco: Never Tobacco Cessation:Counseling Given: Not Answered Alcohol Use Standard Drinks/Week Comments Never 0 (1 standard drink = 0.6 oz pur e alcohol) Comments No Sex and Gender Information Value Date Recorded Sex Assigned at Not on file Legal Sex Female 6:44 PM EDT Gender Identity Not on file Sexual Orientation Not on file Last Filed Vital Signs Vital Sign Reading Time Taken Comments Blood Pressure 98/62 01/01/2025 10:58 AM EST Pulse - - Temperature - - Respiratory Rate - - Oxygen Saturation - - Inhaled Oxygen Concentration - - Weight 53.5 kg (118 lb) 01/01/2025 10:58 AM EST Height 154.9 cm (5' 1 ) 12/19/2022 12:00 PM EST Body Mass Index 22.3 12/19/2022 12:00 PM EST Plan of Treatment Upcoming Encounters Date Type Department Care Team (Late st Contact Info) Description 01/12/2026 9:00 AM EDT Office Visit [facility] [address] [place] [address] Jose Antonio Alaniz DO [address] [place] [address] Insurance [facility] Care Teams Hospital Coordinator Relationship Specialty Start Date End Date Lucia Henley MD PCP - General Family Medicine 12/27/23
--- OUTSIDE RECORDS SUMMARY | 2025-07-05 12:00 | XMS_ITS | Encounter Summary ---
Author Organization [facility] Address [address] [place] [address] Care Team Providers Care Yarn Rewinder Name Role Phone Lucia Henley MD Primary Care Provider [phone] Encounter Details Date Type Department Care Team ([facility] Contact Info) Description 01/13/2025 Orders Only [facility] [address] [place] [address] Emily Arechiga MA Social History Tobacco Use Types Packs/Day Years [...] Upcoming Encounters Date Type Department Care Team ([facility] Contact Info) Description 01/12/2026 9:00 AM EDT Office Visit [facility] [address] [place] [address] Jose Antonio Alaniz DO [address] [place], [place] [id number] documented as of this encounter Procedures Procedure Name Priority Date/Time Associated Diagnosis Comments PAP SMEAR Routine 01/01/2025 12:00 AM EST documented in this encounter Results * Pap Smear (01/01/2025 12:00 AM EST) Swab Cervical swab / Unknown [facility] ORDERABLES Final Re sult EXTERNAL LAB documented in this encounter Visit Diagnoses Not on filedocumented in this encounter Care Teams Yarn Rewinder Relationship Specialty Start Date End Date Lucia Henley MD PCP - General Family Medicine 12/27/23 documented as of this encounter
--- OUTSIDE RECORDS SUMMARY | 2025-07-05 12:00 | XMS_ITS | Clinical Summary ---
Author Organization [facility] Address [address] [place] [address], [address] [place] [address] Care Team Providers Care Fur Cutter Name Role Phone Unavailable Primary Care Provider Unavailabl e Social History Tobacco Use Types Packs/Day Years Used Date Smoking Tobacco: Never Assessed Comments Unknown Sex and Gender Information Value Date Recorded Sex Assigned at Not on file Legal Sex Female 1:30 AM EST Gender Identity Not on file Sexual Orientation Not on file Plan of Treatment Health Maintenance Due Date Last Done Comments DTaP/Tdap/Td vaccine (1 - Tdap) 1999 COVID-19 Vaccine (2023-2 5 season) 2024 Flu vaccine (#1) 06/06/2025 Polio vaccine Aged Out No longer bassem hernandez based on patient's age to complete this topic
--- OUTSIDE RECORDS SUMMARY | 2025-07-05 12:00 | XMS_ITS | Clinical Summary ---
Author Organization [employer] [facility] Address [id number] [address] [place] [address] Care Team Providers Care Recovery Manager Name Role Phone Lucia Henley MD Primary Care Provider [phone] Allergies Active Allergy Reactions Criticality Noted Date Comments Codeine Itching 01/14/2019 Medications 25/iron fum/folic/dha (-1 ORAL) Take 1 tablet by mouth once daily. Active Active Problems Problem Noted Date Diagnosed Date H/O delivery, currently 019 Overview (01/21/2019): times 2 at 34 wks and 36 wks H/O miscarriage, currently 01/21/2019 Advanced maternal age in multigravida 01/21/2019 Rh negative state in antepartum period Resolved Problems Problem Noted Date Diagnosed Date Resolved Date Depression affecting 01/21/2019 02/23/2021 Family History Medical History Relation Name Comments Hypertension Brother Hepatitis Father Hyperlipidemia Father Hypertension Father Mental illness Father Stroke Father Cancer Maternal Grandmother Diabetes Mother Heart disease Mother Hepatitis Mother Hyperlipidemia Mother Hypertension Mother Mental illness Mother Cancer Paternal Grandmother Mental illness Paternal Grandmother Mental illness Sister Relation Name Status Comments Brother Father Maternal Grandfather Alive Maternal Grandmother Mother Paternal Grandfather Paternal Grandmother Sister Social History Tobacco Use Types Packs/Day Years Used Date Smoking Tobacco: Never Smokeless Tobacco: Never Alcohol Use Standard Drinks/Week Comments Not Currently 0 (1 standard drink = 0.6 oz pur e alcohol) Childcare Answer Date Recorded Childcare Unknown 04/11/2019 Employment Answer Date Recorded Employment Unknown 04/11/2019 Purpose - Life Answer Date Recorded Purpose and direction in life Unknown Comments No Sex and Gender Information Value Date Recorded Sex Assigned at Not on file Legal Sex Female 12:43 PM EDT Gender Identity Not on file Sexual Orientation Not on file Last Filed Vital Signs Vital Sign Reading Time Taken Comments Blood Pressure 102/62 02/23/2021 2:17 PM EDT Pulse 82 02/23/2021 2:17 PM EDT Temperature - - Respiratory Rate - - Oxygen Saturation - - Inhaled Oxygen Concentration - - Weight 55.5 kg (122 lb 5.7 oz) 02/23/2021 2:17 P M EDT Height 152.4 cm (5') 02/23/2021 2:17 PM EDT Body Mass Index 23.9 02/23/2021 2:17 PM EDT Plan of Treatment Health Maintenance Due Date Last Done Comments Depression Screening 1992 Tobacco Screening 1992 Adult BMI Screening 1998 DTaP,Tdap and Td Vaccines (1 - Tdap) 1999 Pap Smear 2001 Influenza Vaccine 07/07/2025 11/08/2019 Medical Devices Not on file Insurance [employer] Care Teams Recovery Manager Relationship Specialty Start Date End Date Lucia Henley MD [address] [place] [address] PCP - General 01/21/19
--- OUTSIDE RECORDS SUMMARY | 2025-07-05 12:02 | XMS_ITS | CCD ---
Author Organization [facility] Care Team Providers Care Criminal Justice Instructor Name Role Phone Unavailable Primary Care Provider Rajinder AVILA, DR LUCIA Dumont Primary Care Unavailable KATTY ., DR JOSEPH Admitting Unavailable KATTY ., DR JOSEPH Consulting Unavailable KATTY ., DR JOSEPH Attending Unavailable AUSTIN, DR LUCIA Dumont Primary Care Unavailable LENIN COLLINS Admitting Unavailable KARINA, LENIN Attending Unavailable ADI, DR JAYSON Orozco Consulting Unavailable KARINA, LENIN Consulting Unavailable AUSTIN, DR LUCIA Dumont Primary Care Unavailable KATTY ., DR JOSEPH Admitting Unavailable KATTY ., DR JOSEPH Consulting Unavailable KATTY ., DR JOSEPH Attending Unavailable AUSTIN, DR LUCIA Dumont Primary Care Unavailable DES ., ANDREW DURHAM Admitting Unavailable DES ., ANDREW DURHAM Attending Unavailable Lucia Avila MD Primary Care Provider [phone] JAKE ALANIZ Attending Unavailable Allergies Allergy Classification Reported Allergen(s) Allergy Type Date of Onset Reaction(s) Facility (1 source) Codeine Drug Allergy 2 [facility] Repository (5 sources) Codeine Drug Allergy 9 Itching, Unknown [facility] Medications Current Medications Medication Drug Class(es) Dates Sig (Normalized) Sig (Original) citalopram 10 mg oral tablet (10 sources) Serotonin Reuptake Inhibitor Start: 09-19-2024 take 1 tablet by mouth once daily in the morning citalopram (CeleXA) 10 MG tablet Indications: Hormone imbalance TAKE 1 TABLET BY MOUTH EVERY DAY IN THE MORNING 90 tablet 3 09/19/2024 Active Start: 02-26-2024 take 1 tablet by sia th once daily citalopram (CeleXA) 20 MG tablet Indications: Hormone imbalance TAKE 1 TABLET BY MOUTH ONCE DAILY AT THE SAME TIME EACH DAY 90 tablet 3 02/26/2024 Active Vit-Fe Fumarate-FA ( Vitamin) 27-0.8 MG tablet (3 sources) End: 01-01-2025 Vit-Fe Fumarate-FA ( Vitamin) 27-0.8 MG tablet Vitamin 01/01/2025 Discontinued (Other) Vit-Fe Fumarate-FA ( Vitamin) 27-0.8 MG tablet Vitamin Active Problems Problem Classification Problem Date Documented [...] [PAIN IN LEFT ANKLE] Onset: 03-02-2023 Episodic Other screening for suspected conditions (not mental disorders or infectious disease) (6 sources) Encounter for screening for malignant neoplasm of cervix; Translations: [Patient encounter status] Onset: 12-19-2022 Episodic Results Test Name Value Interpretation Reference Range Facility MM TOMOSYNTHESIS SCREENING B Ion 01-13-2025 [place] [address] Mammography Report Signed Patient: MORENA MOCK MR#: [id number] : 1980 Acct:[id number] Age/Sex: 44 / F ADM Date: 01/13/25 Loc: MAMMO Attending Dr: Jake Alaniz D.O. Ordering Physician: Jake Alaniz D.O. Results: Date of Service: 01/13/25 Follow Up: Procedure(s): MM tomosynthesis screening BI Accession Number(s): [id number] cc: Jake Alaniz D.O. Patient Name: MORENA MOCK MR#: [id number] : 1980 Exam Date: 01/13/2025 Ordering Doctor: DR Jkae Alaniz . RADIOLOGY REPORT PROCEDURE: MM TOMOSYNTHESIS SCREENING BI COMPARISON: MM TOMOSYNTHESIS SCREENING BI, 01/12/2024. INDICATIONS: Screening Calculator Name NCI Breast Cancer Risk Assessment Tool 5 Year Breast Cancer Risk 1.80% Lifetime Breast Cancer Risk 17.10% Personal Breast Cancer No Personal Ovarian Cancer No Treatments None Family Cancers None LOCATION: [facility] BREAST COMPOSITION: The breasts are extremely dense, which lowers the sensitivity of mammography. FINDINGS: DIAGNOSTIC CATEGORY 1--NEGATIVE. RIGHT BREAST: No significant suspicious finding. LEFT BREAST: No significant suspicious finding. RECOMMENDATIONS: ROUTINE MAMMOGRAM AND CLINICAL EVALUATION IN 12 MONTHS. PLEASE NOTE: A NORMAL MAMMOGRAM DOES NOT EXCLUDE THE POSSIBILITY OF BREAST CANCER. A CLINICALLY SUSPICIOUS PALPABLE LUMP SHOULD BE BIOPSIED. Dictated by: Hawk Mo DO on 01/13/2025 at 15:38 Approved by: Hawk Mo DO on 01/13/2025 at 15:39 Dictated By: Hawk Mo M.D. Signed By: 01/13/25 1540 DD/ 1539 TD/TT: Inward Toll Operator: [facility] Radiology, Radiologist, MD - 01/13/2025 [place] [address] Mammography Report Signed Patient: MORENA MOCK MR#: [id number] : 1980 Acct:[id number] Age/Sex: 44 / F ADM Date: 01/13/25 Loc: MAMMO Attending Dr: Jake Alaniz D.O. Ordering Physician: Jake Alaniz D.O. Results: Date of Service: 01/13/25 Follow Up: Procedure(s): MM tomosynthesis screening BI Accession Number(s): [id number] cc: Jake Alaniz D.O. Patient Name: MORENA MOCK MR#: [id number] : 1980 Exam Date: 01/13/2025 Ordering Doctor: DR Jake Alaniz . RADIOLOGY REPORT PROCEDURE: MM TOMOSYNTHESIS SCREENING BI COMPARISON: MM TOMOSYNTHESIS SCREENING BI, 01/12/2024. INDICATIONS: Screening Calculator Name NCI Breast Cancer Risk Assessment Tool 5 Year Breast Cancer Risk 1.80% Lifetime Breast Cancer Risk 17.10% Personal Breast Cancer No Personal Ovarian Cancer No Treatments None Family Cancers None LOCATION: [facility] BREAST COMPOSITION: The breasts are extremely dense, which lowers the sensitivity of mammography. FINDINGS: DIAGNOSTIC CATEGORY 1--NEGATIVE. RIGHT BREAST: No significant suspicious finding. LEFT BREAST: No significant suspicious finding. RECOMMENDATIONS: ROUTINE MAMMOGRAM AND CLINICAL EVALUATION IN 12 MONTHS. PLEASE NOTE: A NORMAL MAMMOGRAM DOES NOT EXCLUDE THE POSSIBILITY OF BREAST CANCER. A CLINICALLY SUSPICIOUS PALPABLE LUMP SHOULD BE BIOPSIED. Dictated by: Hawk Mo DO on 01/13/2025 at 15:38 Approved by: Hawk Mo DO on 01/13/2025 at 15:39 Dictated By: Hawk Mo M.D. Signed By: 01/13/25 1540 DD/ 1539 TD/TT: Inward Toll Operator: [employer] Radiology Study observation (narrative) [employer] MM TOMOSYNTHESIS SCREENING B IOrdered By: Radiologist Radiology on 01-13-2025 24tidy e Work Phone: IGP,APTIMA HPV,AGE GDLNon AGE GDLN ACOG TESTING Note . [employer] Comment on above: TESTS RESULT FLAG UN ITS REF RANGE LAB Clinician Provided Cytology Information Source.............Cervix;Endocervix No. of containers..01 ThinPrep Vial Age Algo ACOG Alexus... 30-65 01 FLAG LEGEND: L-Low Normal,H-High Normal,LL-Alert Low,HH-Alert High <-Panic Low,>-Panic High,A-Abnormal,AA-Critical Abnormal Performed at: 01 =G [address] [place] [address] Alycia Biggs MD, HPV APTIMA Negative Negative [facility] Comment on above: This nucleic acid am plification test detects fourteen high- risk HPV types (16,18,31,33,35,39,45,51,52,56,58,59,66,68) without differentiation. Performed at: =G - [facility], [place] [id number] Review Assistant: Alycia Biggs MD, Phone: [phone] Performed at: - [facility], [place] [id number] Review Assistant: Alycia Biggs MD, Phone: [phone] IGP, APTIMA HPV, RFX 16/18,45 Note . [facility] Comment on above: TESTS RESULT FLAG UN ITS REF RANGE LAB DIAGNOSIS: 02 NEGATIVE FOR INTRAEPITHELIAL LESION OR MALIGNANCY. Specimen adequacy: 02 Satisfactory for evaluation. Endocervical and/or squamous metaplastic cells (endocervical component) are present. Performed by: Mushtaq Randhawa Winding Inspector . 02 Note: Note 02 The Pap smear is a screening test designed to aid in the detection of premalignant and malignant conditions of the uterine cervix. It is not a diagnostic procedure and should not be used as the sole means of detecting cervical cancer. Both false-positive and false-negative reports do occur. Test Methodology: Note 02 This liquid based ThinPrep(R) pap test was screened with the use of an image guided system. HPV Genotype Reflex Note 02 Criteria not met, HPV Genotype not performed. FLAG LEGEND: L-Low Normal,H-High Normal,LL-Alert Low,HH-Alert High <-Panic Low,>-Panic High,A-Abnormal,AA-Critical Abnormal Performed at: [address] [address] Alycia Biggs MD, BRUSH-SPATULA CERVIX ENDOCERVIX [facility] DHEA-SULFATEon 04-01-2023 DHEA-Sulfate 108.0 ug/dL Normal 57.3-279.2 [facility] Comment on above: Performed By: #### D PAOLO #### [facility] [address] [place] [address] Dr. Sissy Adam FSHon 04-01-2023 FSH 8.2 mIU/mL Normal [facility] Comment on above: Result Comment: Adul t Female: Follicular phase 3.5 - 12.5 Ovulation phase 4.7 - 21.5 Luteal phase 1.7 - 7.7 Postmenopausal 25.8 - 134.8 Performed By: #### L BCFSH #### [facility] [address] [place] [address] Dr. Sissy Adam LUTEINIZING HORMONE (LH)on 04-01-2023 LH 8.7 mIU/mL Normal [facility] Comment on above: Result Comment: Adul t Female: Follicular phase 2.4 - 12.6 Ovulation phase 14.0 - 95.6 Luteal phase 1.0 - 11.4 Postmenopausal 7.7 - 58.5 Performed By: #### L BCLH #### [facility] [address] [place] [address] Dr. Sissy Adam PROLACTINon 04-01-2023 Prolactin 45.8 ng/mL Critically high 4.8-23.3 [facility] Comment on above: Performed By: #### P ROLAC #### [facility] [address] [place] [address] Dr. Sissy Adam TSHon 03-31-2023 TSH 3.339 uIU/mL Normal 0.358-3.740 [facility] Comment on above: Performed By: #### T SH #### [facility] [address] [place] [address] Dr. Sissy Adam XR FOOT MARCO MIN [...] by: JAYSON JOSHI Date: 2023-02-23 12:04 Normal [facility] PAP ACOG PANEL 2: 30 to 65on 12-26-2022 . . Normal [facility] Comment on above: Result Comment: Perf ormed at: WB Performed By: #### [id number] #### [facility] [address] [place] [address] Dr. Sissy Adam Age Gdln ACOG Testing 30-65 Normal [facility] Comment on above: Performed By: #### [id number] #### [facility] [address] [place] [address] Dr. Sissy Adam DIAGNOSIS: Comment Normal [facility] Comment on above: Result Comment: NEGA TIVE FOR INTRAEPITHELIAL LESION OR MALIGNANCY. THIS SPECIMEN WAS RESCREENED PART OF OUR SENIOR INSIGHT MANAGER PROGRAM. Performed at: WB Performed By: #### 4 [id number] #### [facility] [address] [place] [address] Dr. Sissy Adam HPV Aptima Negative Normal Negative [facility] Comment on above: Result Comment: This nucleic acid amplification test detects fourteen high-risk HPV types (16,18,31,33,35,39,45,51,52,56,58,59,66,68) without differentiation. Performed at: =G Performed By: #### [id number] #### [facility] [address] [address] [address] Sissy Adam HPV Genotype Reflex Comment Normal [facility] Comment on above: Result Comment: Crit eria not met, HPV Genotype not performed. Performed at: WB Performed By: #### 4 [id number] #### [facility] [address] [address] [address] Sissy Adam Methodology: Comment Normal [facility] Comment on above: Result Comment: This liquid based ThinPrep(R) pap test was screened with the use of an image guided system. Performed at: WB Performed By: #### 4 [id number] #### [facility] [address] [place] [address] Dr. Sissy Adam Note: Comment Normal [facility] Comment on above: Result Comment: The Pap smear is a screening test designed to aid in the detection of premalignant and malignant conditions of the uterine cervix. It is not a diagnostic procedure and should not be used as the sole means of detecting cervical cancer. Both false-positive and false-negative reports do occur. . Performed at: WB Performed By: #### [id number] #### [facility] [address] [place] [address] Dr. Sissy Adam Performed by: Comment Normal [facility] Comment on above: Result Comment: Tamara Flores, Winding Inspector (ASCP) Performed at: [facility] Performed By: #### 4 [id number] #### [facility] [address] [place] [address] Dr. Sissy Adam QC reviewed by: Comment Normal [facility] Comment on above: Result Comment: Anna Harris, Supervisory Winding Inspector (ASCP) Performed at: WB Performed By: #### [id number] #### [facility] [address] [place] [address] Dr. Sissy Adam Specimen adequacy: Comment Normal [facility] Comment on above: Result Comment: Sati sfactory for evaluation. Endocervical and/or squamous metaplastic cells (endocervical component) are present. Performed at: WB Performed By: #### 4 [id number] #### [facility] [address] [place] [address] Dr. Sissy Adam Vital Signs Date Time Vital Sign Value Performing Clinician Faci lity 01-01-2025 10:58-0500 Body mass index (BMI) [Ratio] 22.3 kg/m2 Jake Katty DO Work Phone: [facility] 01-01-2025 10:58-0500 Body weight 53.52 kg Jake Katty DO Work Phone: [facility] 01-01-2025 10:58-0500 Diastolic blood pressure 62 mm[Hg] Jake Katty DO Work Phone: [facility] 01-01-2025 10:58-0500 Systolic blood pressure 98 mm[Hg] Jake Katty DO Work Phone: [facility] Encounters Encounter Date Encounter Type Care Provider Facility Start: 01-13-2025 End: 01-13-2025 [facility] Result Encounter Jake Katty DO Work Phone: [facility] External Department Unsolicited Start: 01-13-2025 End: 01-13-2025 [facility] Result Encounter Jake Katty DO Work Phone: [facility] External Department Unsolicited Start: 01-01-2025 End: 01-01-2025 Bamboo flowsheet Jake Katty DO Work Phone: [facility] Start: 01-01-2025 End: 01-04-2025 Bamboo flowsheet Jake Katty DO Work Phone: [facility] Start: 01-01-2025 End: 01-04-2025 [facility] Result Encounter Jake Katty DO Work Phone: [facility] External Department Unsolicited Start: 01-01-2025 End: 01-01-2025 Patient encounter procedure Jake Katty DO Work Phone: [facility] Start: 01-01-2025 End: 01-01-2025 Periodic preventive med est patient 40-64yrs Jake Garciao DO Work Phone: [facility] Comment on above: Well woman exam with routine gynecological exam; Encounter for screening mammogram for malignant neoplasm of breast Start: 01-01-2025 End: 01-01-2025 ambulatory JAKE CONNERZIO Not Available Start: 03-31-2023 End: 04-01-[address] LUCIA AVILA Facility:[facility] Start: 03-02-[address] LUCIA AVILA Facil ity:[facility] Start: 02-26-2023 End: 02-27-2023 Emergency department patient visit [facility] Start: 02-23-2023 End: 02-24-[address] LUCIA AVILA Facility:[facility] Start: 12-19-2022 End: 12-19-[address] LUCIA AVILA Facility:[facility] Procedures Date Procedure Procedure Detail Performing Clinician Start: 01-13-2025 MM TOMOSYNTHESIS SCR EENING BI Jake Garciao DO Work Phone: Start: 01-01-2025 IGP,APTIMA HPV,AGE GDLN Jake Garciao DO Work Phone: Plan of Treatment Date Care Activity Detail Author Start: 01-12-2026 End: 01-12-2026 Patient encounter procedure 01/12/2026 9:00 AM EDT Office Visit [facility] [address] [place] [address] Jake Alaniz, DO [address] [place] [address] [facility] Start: 01-01-2025 End: 03-01-2026 MG Breast - bilateral Screening Bilateral screening mammogram Imaging Routine Encounter for screening mammogram for malignant neoplasm of breast Expected: 01/01/2025 (Approximate), Expires: 03/01/2026 [facility] Work Phone: Comment on above: Expected: 01/01/2025 (Approximate), Expires: 03/01/2026 Start: 01-01-2025 End: 01-01-2025 Patient encounter procedure 01/01/2025 11:00 AM EST Office Visit [facility] [address] [place] [place] [address] Jake Alaniz DO [address] [facility] [address] [place] [address] Arrived [facility] Comment on above: Arrived Start: 06-06-2023 Influenza vaccination Flu vacc ine (Season Ended) [facility] Start: 1999 DTaP/Tdap/Td vaccine (1 - Tdap) DTaP/Tdap/Td vaccine (1 - Tdap) [facility] Start: 04-09-1981 COVID-19 Vaccine (#1) COVID-19 Vacci ne (#1) [facility] THIN PREP TIS PAP AN D HR HPV DNA THIN PREP TIS PAP AND HR HPV DNA Pathology and Cytology Routine Well woman exam with routine gynecological exam Ordered: 01/01/2025 [facility] Comment on above: Ordered: 01/01/2025 Payers Date Payer Category Payer Private Health Insurance [facility] [id number] 2023 Private Health Insurance [id number] 1980 Unknown [id number] 1980 Unknown [id number] 1980 Unknown [id number] 1980 Unknown [id number] 1980 Unknown [id number] 1959 Self-pay [id number] Social History Date Type Detail Facility Tobacco smoking stat [facility] Tobacco smoking consumption unknown [facility] Phone: Start: 1980 Sex Assigned At Not on file [facility] Phone: Start: 12-04-2023 Tobacco smoking stat [facility] Never smoked tobacco [facility] Start: 12-27-2023 End: 01-01-2025 Alcoholic beverage intake Lifetime non-drinker (finding) [facility] Start: 12-04-2023 End: 01-01-2025 History of Social function [facility] Start: 12-04-2023 End: 01-01-2025 Tobacco use panel [facility] History of Present illness Narrative 01-01-2025 Bhavani Herring LPN - 01/01/2025 11:00 AM EST Note Date & Type Note Facility 01-01-2025 History of Presen t illness Narrative Reason for Appointment: Patient ID: Morena Mock is a 44 y.o. female who presents for Well Women Visit Patient presents today for Annual Exam. MEDICATIONS Current Outpatient Medications Medication Instructions citalopram (CeleXA) 20 MG tablet TAKE 1 TABLET BY MOUTH ONCE DAILY AT THE SAME TIME EACH DAY citalopram (CELEXA) 10 mg, Oral, Every morning ALLERGIES Allergies Allergen Reactions Codeine Itching and Unknown PROBLEMS Active Ambulatory Problems Diagnosis Date Noted No Active Ambulatory Problems Resolved Ambulatory Problems Diagnosis Date Noted No Resolved Ambulatory Problems Past Medical History: Diagnosis Date 6 weeks follow-up BMI 21.0-21.9, adult Breast cancer screening by mammogram Depression ([facility]) Encounter for gynecological examination (general) (routine) without abnormal findings Family history of diabetes mellitus Rash HISTORY PAST MEDICAL HISTORY SOCIAL HISTORY Past Medical History: Diagnosis Date 6 weeks follow-up BMI 21.0-21.9, adult Breast cancer screening by mammogram Depression ([facility]) Encounter for gynecological examination (general) (routine) without abnormal findings Family history of diabetes mellitus Rash Social History Tobacco Use Smoking status: Never Smokeless tobacco: Not on file Substance Use Topics Alcohol use: Never Drug use: Never FAMILY HISTORY Family History Problem Relation Name Age of Onset Mental illness Mother Hyperlipidemia Mother Hypertension Mother Diabetes Mother Heart disease Mother Hypertension Father Hyperlipidemia Father Stroke Father Mental illness Father Cancer Maternal Grandmother Cancer Paternal Grandmother Mental illness Sibling Hypertension Sibling SURGICAL HISTORY Past Surgical History: Procedure Laterality Date HERNIA REPAIR Left 1988 inguinal hernia REVIEW OF SYSTEMS Review of Systems: Review of Systems Constitutional: Negative. HENT: Negative. Eyes: Negative. Respiratory: Negative. Cardiovascular: Negative. Gastrointestinal: Negative. Genitourinary: Negative. Musculoskeletal: Negative. Skin: Negative. Neurological: Negative. All other systems reviewed and are negative. Hematological: Negative. Endocrine: Negative. Allergic/Immunologic: Negative. OBJECTIVE Objective: Physical Exam Constitutional: Appearance: Normal appearance. She is well-developed. Genitourinary: Vulva normal. Breasts: Breasts are soft. Right: Normal. Left: Normal. Cardiovascular: Rate and Rhythm: Normal rate and regular rhythm. Pulmonary: Effort: Pulmonary effort is normal. Breath sounds: Normal breath sounds. Abdominal: General: Bowel sounds are normal. There is no distension. Palpations: Abdomen is soft. Tenderness: There is no abdominal tenderness. There is no guarding or rebound. Musculoskeletal: General: No swelling. Normal range of motion. Right lower leg: No edema. Left lower leg: No edema. Neurological: Mental Status: She is alert and oriented to person, place, and time. Skin: General: Skin is warm and dry. Psychiatric: Mood and Affect: Mood normal. Behavior: Behavior normal. Vitals and nursing note reviewed. Exam conducted with a control systems developer present. Vitals: Estimated body mass index is 22.3 kg/m as calculated from the following: Height as of 12/19/22: 5' 1 . Weight as of this encounter: 118 lb. BP: 98/62 No LMP recorded. ASSESSMENT & PLAN ICD-10-CM 1. Well woman exam with routine gynecological exam Z01.419 THIN PREP TIS PAP AND HR HPV DNA 2. Encounter for screening mammogram for malignant neoplasm of breast Z12.31 Bilateral screening mammogram Bilateral screening mammogram Annual: Patient presents today for an annual exam. Patient states she is doing well and has no complaints. Pap was obtained without difficulty and patient given mammogram order to have scheduled/obtained. Orders Placed This Encounter Procedures Bilateral screening mammogram Follow Up: Patient is to return in one year for annual unless needed otherwise. Documented by Bhavani Herring LPN on behalf of: Jake Alaniz DO documented in this encounter [facility] Evaluation note Note Date & Type Note Facility Evaluation note Diagnosis Well woman exam with routine gynecological exam Routine gynecological examination Encounter for screening mammogram for malignant neoplasm of breast documented in this encounter [facility] Summary Purpose Family History No Family History Records FoundNo Family History Records Found Advance Directives No Advanced Directives Records FoundNo Advanced Directives Records Found Additional Source Comments INFORMATION SOURCE (unrecogn ized section and content) DATE CREATED AUTHOR 04/14/2023 [facility] DATE CREATED AUTHOR AUTHOR'S ORGANIZ ATION 01/03/2025 [facility] Care Teams (unrecognized sec tion and content) Criminal Justice Instructor Relationship Specialty Start Date End Date Lucia Avila MD [address] [place] [address] PCP - General Family Medicine 12/27/23 Criminal Justice Instructor Relationship Specialty Start Date End Date Lucia Avila MD [address] [place] [address] PCP - General Family Medicine 12/27/23 Criminal Justice Instructor Relationship Specialty Start Date End Date Lucia Avila MD [address] [place] [address] PCP - General Family Medicine 12/27/23 Reason for Visit (unrecogniz ed section and content) Reason Comments Well Women Visit FOR RECORDS PERTAINING TO PATIENTS WHO ARE [...] BE BASED ON THE PRIMARY CLINICAL RECORDS. [facility]. provides no warranty or guarantee of the accuracy or completeness of information in this document.
[2025-07-05 14:28] LABS: Free T3 2.68 pg/mL (2.18-3.98); Glucose 80 mg/dL (74-106); Thyroid Stimulating Hormone 2.300 uIU/mL (0.358-3.740)
[2025-07-05 15:08] LABS: Ferritin 56.0 ng/mL (8.0-252.0)
[2025-07-08 13:07] LABS: FSH 4.5 mIU/mL (.)
[2025-07-08 18:08] LABS: Sex Horm Binding Glob, Serum 64.8 nmol/L (24.6-122.0)
[2025-07-09 11:08] LABS: Calcitriol(1,25 di-OH Vit D) 71.3 pg/mL (24.8-81.5)
[2025-07-10 18:08] LABS: Reverse T3, Serum 17.9 ng/dL (9.2-24.1)
[2025-07-11 17:08] LABS: Serotonin, Serum 5 ng/mL (31-207)
== END 2025-07-05 11:53 | disposition home or self-care (01) ==
PROVIDERS: PCP Obstetrics & Gynecology; Visit Provider Obstetrics & Gynecology
DX: N91.2 Amenorrhea, unspecified (principal); E34.9 Endocrine disorder, unspecified
CPT/HCPCS: 36415; 82530; 82627; 82652; 82670; 82679; 82728; 82947; 83001; 83002; 83036; 83525; 84144; 84146; 84260; 84270; 84402; 84403; 84432; 84436; 84439; 84443; 84481; 84482; 84681; 86376; 86800